=== PATIENT | female | born 1980 | race Two or more races ===

== ENCOUNTER 2017-05-16 21:12 | Emergency (ER) | payer MEDICAID ==
[~2017-05-16] VITALS: Ht 160 cm; Wt 127.0 kg
[~2017-05-16 21:12] MED LIST: LEVO500T21 PO; NOR10T PO; ONDA4TAB8 SL
[2017-05-16 23:08] LABS: Hematocrit 41.9 % (36.0-46.0); Mean Corpuscular Hemoglobin 28.6 pg (28.0-32.0); Mean Corpuscular Hgb Conc. 33.3 g/dL (32.0-36.0); Mean Corpuscular Volume 85.9 fL (80.0-100.0); Mean Platelet Volume 7.1 fL (6.9-10.8); Platelet Count (auto) 382 10^3/uL (140-450); Red Cell Distribution Width 14.7 % (11.8-14.3); White Blood Cell 12.2 10^3/uL (4.4-10.8)
[2017-05-16 23:15] LABS: Metamyelocytes % 0; Myelocytes % 0; Promyelocytes % 0; Reactive Lymphocytes 0
[2017-05-16 23:22] LABS: INR 0.95 (0.9-1.15); Prothrombin Time 10.3 sec (9.37-12.3)
[2017-05-16 23:37] LABS: Albumin 3.8 g/dL (3.4-5.0); BUN/Creatinine Ratio 12.5; Calcium 9.2 mg/dL (8.5-10.1); Potassium 3.6 mmol/L (3.5-5.1)
[2017-05-16 23:39] LABS: Bilirubin, Total 0.6 mg/dL (0.2-1.0); Total Protein 8.3 g/dL (6.4-8.2)
[2017-05-16 23:43] LABS: Hypersegmented Neutrophils Present; Platelet Estimate Adequate; RBC Morphology Normal
[2017-05-17] MEDS ORDERED: SODIUM CHLORIDE 0.9% 250 ML IV ONE
[2017-05-17] MEDS ORDERED: HYDROmorphone HCL 2 MG/ML VL IM ONE
[2017-05-17] MEDS ORDERED: cloNIDine HCL 0.1 MG TAB PO ONE (03:00)
[2017-05-17] MEDS ORDERED: HYDROmorphone HCL 2 MG/ML VL IV ONE ×2 (03:30→03:45)
[2017-05-17] MEDS ORDERED: ONDANSETRON HCL 4 MG/2 ML VIAL IV ONE ×2 (03:30)
[2017-05-17 03:33] LABS: Urine Bilirubin Negative (Negative); Urine Blood 2+ /uL (Negative); Urine Color Yellow (Yellow); Urine Glucose Normal (Normal); Urine Ketone 2+ (Negative); Urine Mucus MODERATE (None Seen); Urine Nitrite Negative (Negative); Urine RBC 29 /hpf (0 - 4); Urine Squamous Epithelial Cell MOD /hpf (<5); Urine Urobilinogen Normal (Negative)
[2017-05-17 05:46] VITALS: BP 125/71
== END 2017-05-17 06:20 | disposition home or self-care (01) ==
LOC: EDBD 21:12 → ER 21:22
DX: K29.00 Acute gastritis without bleeding (principal); F12.10 Cannabis abuse, uncomplicated; K21.9 Gastro-esophageal reflux disease without esophagitis; I10 Essential (primary) hypertension; Z87.11 Personal history of peptic ulcer disease; Z87.442 Personal history of urinary calculi; Z90.49 Acquired absence of other specified parts of digestive tract
CPT/HCPCS: 36415; 74176; 80053; 80307; 81001; 81025; 82150; 83690; 84702; 85007; 85027; 85610; 85730; 96361; 96372; 96374; 96375; 96376; 99285; J1170; J2405; J7030

== ENCOUNTER 2017-06-10 06:52 | Emergency (ER) | payer MEDICAID ==
[~2017-06-10] VITALS: Ht 170.2 cm; Wt 127.0 kg
[2017-06-10 08:14] VITALS: BP 148/104
[2017-06-10] MEDS ORDERED: KETOROLAC TROMETH 60MG/2ML VIAL IM ONE (08:30)
[2017-06-10 09:14] LABS: Basophils # (auto) 0.1 uL; Basophils % (auto) 0.8 % (0.0-2.0); Eosinophils # (auto) 0 uL; Eosinophils % (auto) 0.4 % (0.0-7.0); Hematocrit 38.9 % (36.0-46.0); Lymphocytes # (auto) 1.8 uL; Lymphocytes % (auto) 17.9 % (10.0-50.0); Mean Corpuscular Hemoglobin 29.1 pg (28.0-32.0); Mean Corpuscular Hgb Conc. 33.5 g/dL (32.0-36.0); Mean Platelet Volume 7.2 fL (6.9-10.8); Monocytes # (auto) 0.6 uL; Monocytes % (auto) 5.9 % (0.0-12.0); Neutrophils # (auto) 7.7 uL; Nucleated Red Blood Cells % 0.1 %; Platelet Count (auto) 279 10^3/uL (140-450); Red Cell Distribution Width 15.6 % (11.8-14.3); White Blood Cell 10.3 10^3/uL (4.4-10.8)
[2017-06-10 09:40] LABS: Albumin 3.5 g/dL (3.4-5.0); BUN/Creatinine Ratio 12.9; Bilirubin, Total 0.4 mg/dL (0.2-1.0); Calcium 8.5 mg/dL (8.5-10.1); Total Protein 7.2 g/dL (6.4-8.2)
[2017-06-10] MEDS ORDERED: PROMETHAZINE HCL 25 MG/ML 1ML IM ONE (10:00)
[2017-06-10] MEDS ORDERED: MORPHINE SULFATE 10 MG/ML INJ 1ML SDV IM ONE (10:00)
== END 2017-06-10 10:29 | disposition home or self-care (01) ==
LOC: EDBD 06:52 → ER 06:56
DX: N20.0 Calculus of kidney (principal); N83.201 Unspecified ovarian cyst, right side; K42.9 Umbilical hernia without obstruction or gangrene
CPT/HCPCS: 36415; 74176; 80053; 81025; 83690; 85025; 96372; 99285; J1885; J2270; J2550

== ENCOUNTER 2017-07-10 01:01 | Emergency (ER) | payer MEDICAID ==
[~2017-07-10] VITALS: Ht 160 cm; Wt 121.6 kg
[2017-07-10] MEDS ORDERED: SODIUM CHLORIDE 0.9% 1,000 ML IVB ONE (01:11)
[2017-07-10] MEDS ORDERED: ONDANSETRON HCL 4 MG/2 ML VIAL IV ONE ×2 (01:15→07:00)
[2017-07-10] MEDS ORDERED: KETOROLAC TROMETH 30 MG/ML 1ML VIAL IV ONE (01:15)
[2017-07-10 01:33] LABS: Hematocrit 42.1 % (36.0-46.0); Mean Corpuscular Hemoglobin 28.8 pg (28.0-32.0); Mean Corpuscular Hgb Conc. 33.3 g/dL (32.0-36.0); Mean Corpuscular Volume 86.7 fL (80.0-100.0); Mean Platelet Volume 7.4 fL (6.9-10.8); Platelet Count (auto) 335 10^3/uL (140-450); White Blood Cell 12.2 10^3/uL (4.4-10.8)
[2017-07-10 01:35] LABS: Metamyelocytes % 0; Myelocytes % 0; Promyelocytes % 0
[2017-07-10 01:49] LABS: Albumin 3.7 g/dL (3.4-5.0); Potassium 3.3 mmol/L (3.5-5.1)
[2017-07-10 01:51] LABS: BUN/Creatinine Ratio 13.9
[2017-07-10 01:53] LABS: Bilirubin, Total 0.4 mg/dL (0.2-1.0); Total Protein 8.1 g/dL (6.4-8.2)
[2017-07-10 02:20] LABS: Ovalocytes FEW; Platelet Estimate Adequate; Reactive Lymphocytes 4
[2017-07-10] MEDS ORDERED: PROMETHAZINE HCL 25 MG/ML 1ML ONE (02:45)
[2017-07-10] MEDS ORDERED: MORPHINE SULF INJ 2 MG/ML SYRINGE 1ML ONE (02:45)
[2017-07-10] MEDS ORDERED: LISI10TA6 PO (03:27)
[2017-07-10] MEDS ORDERED: MORPHINE SULF INJ 2 MG/ML SYRINGE 1ML IV ONE (03:30)
[2017-07-10] MEDS ORDERED: PROMETHAZINE HCL 25 MG/ML 1ML IV ONE (03:30)
[2017-07-10 04:22] LABS: Urine Bilirubin Negative (Negative); Urine Blood Negative /uL (Negative); Urine Color Yellow (Yellow); Urine Glucose Normal (Normal); Urine Ketone 1+ (Negative); Urine Nitrite Negative (Negative); Urine RBC <1 /hpf (0 - 4); Urine Squamous Epithelial Cell FEW /hpf (<5); Urine Urobilinogen Normal (Negative); Urine pH 7.5 (5.0-8.0)
[2017-07-10] MEDS ORDERED: cefTRIAXone SOD 1,000 MG VL ONE (04:59)
[2017-07-10 06:49] VITALS: BP 165/76
[2017-07-10] MEDS ORDERED: HYDROmorphone HCL 2 MG/ML VL IV ONE (07:00)
== END 2017-07-10 07:44 | disposition home or self-care (01) ==
LOC: EDBD 01:01 → ER 01:07
DX: N39.0 Urinary tract infection, site not specified (principal); E86.0 Dehydration; K21.9 Gastro-esophageal reflux disease without esophagitis; I10 Essential (primary) hypertension; Z87.442 Personal history of urinary calculi; Z87.11 Personal history of peptic ulcer disease; Z90.49 Acquired absence of other specified parts of digestive tract
CPT/HCPCS: 36415; 74176; 80053; 80320; 81001; 82150; 83690; 84702; 85007; 85027; 96361; 96374; 96375; 96376; 99285; J0696; J1170; J1885; J2270; J2405; J2550; J7030

== ENCOUNTER 2017-09-28 01:28 | Emergency (ER) | payer MEDICAID ==
[~2017-09-28] VITALS: Ht 160 cm; Wt 108.9 kg
[~2017-09-28 01:28] MED LIST changes: +LISI10TA6 PO; +ONDA-101 SL; -ONDA4TAB8 SL
[2017-09-28 01:48] VITALS: BP 155/103
[2017-09-28] MEDS ORDERED: LORazepam 0.5 MG TAB PO ONE (02:00)
[2017-09-28] MEDS ORDERED: HYDROcodone-ACET 10/325MG TAB PO ONE (02:00)
[2017-09-28 03:07] LABS: Basophils # (auto) 0.1 uL; Basophils % (auto) 0.9 % (0.0-2.0); Eosinophils # (auto) 0 uL; Eosinophils % (auto) 0.3 % (0.0-7.0); Hematocrit 43.7 % (36.0-46.0); Hemoglobin 14.8 g/dL (12.2-16.2); Lymphocytes # (auto) 2.6 uL; Lymphocytes % (auto) 24.9 % (10.0-50.0); Mean Corpuscular Hgb Conc. 33.8 g/dL (32.0-36.0); Mean Corpuscular Volume 85.8 fL (80.0-100.0); Monocytes # (auto) 0.6 uL; Monocytes % (auto) 5.3 % (0.0-12.0); Neutrophils # (auto) 7.1 uL; Neutrophils % (auto) 68.6 % (37.0-80.0); Platelet Count (auto) 353 10^3/uL (140-450); Red Cell Distribution Width 14.6 % (11.8-14.3); White Blood Cell 10.3 10^3/uL (4.4-10.8)
[2017-09-28 03:25] LABS: BUN/Creatinine Ratio 17.6; Calcium 9.3 mg/dL (8.5-10.1); Potassium 3.3 mmol/L (3.5-5.1)
[2017-09-28 03:28] LABS: Bilirubin, Total 0.6 mg/dL (0.2-1.0); Total Protein 8.1 g/dL (6.4-8.2)
[2017-09-28 04:12] LABS: Urine Pregnacy Test Negative (Negative)
[2017-09-28 04:14] LABS: Urine Bacteria NONE SEEN /hpf (None Seen); Urine Blood TRACE /uL (Negative); Urine Mucus FEW (None Seen); Urine Specific Gravity 1.024 (1.001-1.035); Urine WBC 5 /hpf (0 - 5)
[2017-09-28 04:28] LABS: Alcohol, Urine < 3.0 mg/dL (0-5); Amphetamine Screen, Urine POSITIVE (NEGATIVE); Barbiturate Scree,Urine NEGATIVE (NEGATIVE); Benzodiazephine Screen, Urine NEGATIVE (NEGATIVE); Cannabinoid Screen, Urine POSITIVE (NEGATIVE); Cocaine Screen, Urine NEGATIVE (NEGATIVE); Opiate Scree,Urine NEGATIVE (NEGATIVE); Phencyclidine Screen, Urine NEGATIVE (NEGATIVE)
== END 2017-09-28 04:23 | disposition left against medical advice (07) ==
LOC: ER 01:28 → EDBD 01:28 → ER 04:23
DX: R10.9 Unspecified abdominal pain (principal); F41.9 Anxiety disorder, unspecified; Z53.21 Procedure and treatment not carried out due to patient leaving prior to being seen by health care provider
CPT/HCPCS: 36415; 74176; 80053; 80307; 81001; 81025; 85025

== ENCOUNTER 2018-04-17 16:27 | Emergency (ER) | payer MEDICAID ==
[~2018-04-17] VITALS: Ht 167.6 cm; Wt 127.0 kg
[2018-04-17] MEDS ORDERED: SODIUM CHLORIDE 0.9% 1,000 ML IVB ONE (16:52)
[2018-04-17] MEDS ORDERED: PANTOPRAZOLE 40 MG/10 ML VIAL IV STA (16:52)
[2018-04-17] MEDS ORDERED: PROCHLORPERAZINE EDISYLATE 5 MG/ML 2ML VIAL IV ONE (17:00)
[2018-04-17] MEDS ORDERED: MORPHINE SULFATE 4 MG/ML SYR/VIAL IV ONE (17:00)
[2018-04-17 18:59] LABS: Basophils # (auto) 0.1 uL; Basophils % (auto) 0.5 % (0.0-2.0); Eosinophils # (auto) 0 uL; Eosinophils % (auto) 0.4 % (0.0-7.0); Hemoglobin 14.3 g/dL (12.2-16.2); Lymphocytes # (auto) 2.4 uL; Lymphocytes % (auto) 24.5 % (10.0-50.0); Mean Corpuscular Hemoglobin 30.8 pg (28.0-32.0); Mean Corpuscular Hgb Conc. 34.8 g/dL (32.0-36.0); Mean Corpuscular Volume 88.4 fL (80.0-100.0); Monocytes # (auto) 0.7 uL; Monocytes % (auto) 7.4 % (0.0-12.0); Neutrophils # (auto) 6.5 uL; Neutrophils % (auto) 67.2 % (37.0-80.0); Nucleated Red Blood Cells % 0.1 %; Platelet Count (auto) 284 10^3/uL (140-450); Red Blood Cells 4.64 10^6/uL (4.0-5.20); Red Cell Distribution Width 13.7 % (11.8-14.3); White Blood Cell 9.7 10^3/uL (4.4-10.8)
[2018-04-17 19:15] LABS: Albumin 3.4 g/dL (3.4-5.0); BUN/Creatinine Ratio 21.3; Calcium 7.9 mg/dL (8.5-10.1); Potassium 3.2 mmol/L (3.5-5.1)
[2018-04-17 19:18] LABS: Bilirubin, Total 1.1 mg/dL (0.2-1.0); Total Protein 7.2 g/dL (6.4-8.2)
[2018-04-17 20:04] LABS: Urine Bacteria NONE SEEN /hpf (None Seen); Urine Blood Negative /uL (Negative); Urine Mucus FEW (None Seen); Urine Specific Gravity 1.012 (1.001-1.035); Urine WBC 4 /hpf (0 - 5)
[2018-04-17 20:13] VITALS: BP 135/68
== END 2018-04-17 20:20 | disposition home or self-care (01) ==
LOC: EDUNIT# 16:27 → EDBD 16:27 → ER 16:33
DX: R10.84 Generalized abdominal pain (principal); F12.10 Cannabis abuse, uncomplicated; R11.2 Nausea with vomiting, unspecified; R19.7 Diarrhea, unspecified; K21.9 Gastro-esophageal reflux disease without esophagitis; I10 Essential (primary) hypertension; Z87.11 Personal history of peptic ulcer disease; Z87.442 Personal history of urinary calculi; Z90.49 Acquired absence of other specified parts of digestive tract
CPT/HCPCS: 36415; 80053; 81001; 82150; 83690; 84702; 85025; 94761; 96361; 96374; 96375; 99285; C9113; J0780; J2270; J7030

== ENCOUNTER 2020-08-20 22:24 | Emergency (ER) | payer MEDICAID ==
[~2020-08-20] VITALS: Ht 160 cm; Wt 95.3 kg
[~2020-08-20 22:24] MED LIST changes: +LISI-648 PO; -LISI10TA6 PO
[2020-08-20 23:31] VITALS: BP 154/104
[2020-08-20] MEDS ORDERED: methylPREDNISolone SOD SUCC 125 MG/2 ML VL IM ONE (23:45)
[2020-08-20] MEDS ORDERED: KETOROLAC TROMETH 60MG/2ML VIAL IM ONE (23:45)
== END 2020-08-21 00:33 | disposition home or self-care (01) ==
LOC: ER 22:26
DX: S43.401A Unspecified sprain of right shoulder joint, initial encounter (principal); I10 Essential (primary) hypertension; K21.9 Gastro-esophageal reflux disease without esophagitis; Z79.899 Other long term (current) drug therapy; Z90.49 Acquired absence of other specified parts of digestive tract; W19.XXXA Unspecified fall, initial encounter; Y93.89 Activity, other specified; Y92.89 Other specified places as the place of occurrence of the external cause; Y99.8 Other external cause status
CPT/HCPCS: 73030; 81025; 96372; 99284; J1885; J2930

== ENCOUNTER 2020-10-20 21:09 | Emergency (ER) | payer MEDICAID ==
[~2020-10-20] VITALS: Ht 160 cm; Wt 95.3 kg
[~2020-10-20 21:09] MED LIST changes: -LEVO500T21 PO; +LEVO500T31 PO
[2020-10-21 01:14] VITALS: BP 157/100
== END 2020-10-21 02:51 | disposition left against medical advice (07) ==
LOC: ER 21:11
DX: M79.605 Pain in left leg (principal); M79.604 Pain in right leg; F12.10 Cannabis abuse, uncomplicated; I10 Essential (primary) hypertension; F41.9 Anxiety disorder, unspecified; K21.9 Gastro-esophageal reflux disease without esophagitis; Z87.442 Personal history of urinary calculi; Z87.11 Personal history of peptic ulcer disease; Z79.899 Other long term (current) drug therapy

== ENCOUNTER 2020-12-12 00:18 | Emergency (ER) | payer MEDICAID ==
[~2020-12-12] VITALS: Ht 160 cm; Wt 95.3 kg
[~2020-12-12 00:18] MED LIST changes: -LISI-648 PO; +LISI-716 PO
[2020-12-12 00:19] VITALS: BP 165/104
[2020-12-12] MEDS ORDERED: KETOROLAC TROMETH 60MG/2ML VIAL IM ONE (01:30)
== END 2020-12-12 02:55 | disposition home or self-care (01) ==
LOC: ER 00:18
DX: S80.02XA Contusion of left knee, initial encounter (principal); M79.642 Pain in left hand; M79.641 Pain in right hand; F12.10 Cannabis abuse, uncomplicated; K21.9 Gastro-esophageal reflux disease without esophagitis; I10 Essential (primary) hypertension; Z90.49 Acquired absence of other specified parts of digestive tract; Z87.442 Personal history of urinary calculi; W01.0XXA Fall on same level from slipping, tripping and stumbling without subsequent striking against object, initial encounter; Y93.89 Activity, other specified; Y92.89 Other specified places as the place of occurrence of the external cause; Y99.8 Other external cause status
CPT/HCPCS: 73030; 73130; 73562; 96372; 99284; J1885

== ENCOUNTER 2021-05-26 23:35 | Inpatient (IN) | payer MEDICAID ==
[~2021-05-26] VITALS: Ht 160 cm; Wt 103.3 kg
[2021-05-27 02:41] LABS: Basophils # (auto) 0 10 ^3/uL (0-0.2); Basophils % (auto) 0.6 % (0.0-2.0); Eosinophils # (auto) 0.1 10 ^3/uL (0-0.8); Hematocrit 39.8 % (36.0-46.0); Hemoglobin 13.5 g/dL (12.2-16.2); Lymphocytes % (auto) 25.1 % (10.0-50.0); Mean Corpuscular Hemoglobin 29.8 pg (28.0-32.0); Mean Corpuscular Hgb Conc. 33.9 g/dL (32.0-36.0); Mean Corpuscular Volume 87.8 fL (80.0-100.0); Monocytes # (auto) 0.5 10 ^3/uL (0-1.3); Monocytes % (auto) 6.2 % (0.0-12.0); Neutrophils # (auto) 5.3 10 ^3/uL (1.6-8.6); Neutrophils % (auto) 67.1 % (37.0-80.0); Nucleated Red Blood Cells % 0.2 %; Red Blood Cells 4.54 10^6/uL (4.0-5.20); Red Cell Distribution Width 14.5 % (11.8-14.3); White Blood Cell 7.9 10^3/uL (4.4-10.8)
[2021-05-27 02:45] LABS: Urine Bacteria FEW /hpf (None Seen); Urine Blood Negative /uL (Negative); Urine Specific Gravity 1.022 (1.001-1.035); Urine WBC 5 /hpf (0 - 5)
[2021-05-27 03:45] LABS: Potassium 3.5 mmol/L (3.5-5.1)
[2021-05-27 03:54] LABS: Albumin 3.6 g/dL (3.4-5.0); BUN/Creatinine Ratio 20.8; Bilirubin, Total 0.2 mg/dL (0.2-1.0); Calcium 8.8 mg/dL (8.5-10.1); Magnesium 2.1 mg/dL (1.6-2.6); Total Protein 7.4 g/dL (6.4-8.2)
[2021-05-27] MEDS ORDERED: IOHEXOL 300 MG/ML 100ML BOTTLE IJ ONE (05:18)
[2021-05-27] MEDS ORDERED: MORPHINE SULFATE INJECTION 2 MG/ML SYRG IV PRN (09:30)
[2021-05-27] MEDS ORDERED: NITROGLYCERIN 0.4 MG SL TAB SL PRN (09:30)
[2021-05-27] MEDS ORDERED: ACETAMINOPHEN 500 MG TAB PO PRN (09:30)
[2021-05-27] MEDS: ONDANSETRON HCL 4 MG/2 ML VIAL IV PRN (10:50)
[2021-05-27] MEDS: metroNIDAZOLE 500MG/100ML 100 ML IV SCH ×2 (14:08→21:47)
[2021-05-27] MEDS: HYDROcodone-ACET 5/325MG TAB PO PRN (16:19)
[2021-05-27] MEDS: ALPRAZolam 0.25 MG TAB PO PRN (16:20)
[2021-05-27 22:00] VITALS: BP 145/93
[2021-05-28] MEDS: HYDROcodone-ACET 5/325MG TAB PO PRN ×2 (01:22→01:30)
[2021-05-28] MEDS: MORPHINE SULFATE INJECTION 2 MG/ML SYRG IV PRN ×4 (01:27→23:25)
[2021-05-28 05:00] VITALS: BP 193/138
[2021-05-28] MEDS: ONDANSETRON HCL 4 MG/2 ML VIAL IV PRN (05:07)
[2021-05-28] MEDS: ALPRAZolam 0.25 MG TAB PO PRN (05:44)
[2021-05-28] MEDS: metroNIDAZOLE 500MG/100ML 100 ML IV SCH ×3 (05:44→21:59)
[2021-05-28] MEDS ORDERED: hydrALAZINE HCL 20 MG/ML VL IV ONE (06:15)
[2021-05-28] MEDS: cefTRIAXone 1GM/50ML D5W 50 ML IV SCH (08:37)
[2021-05-28 09:00] VITALS: BP 147/95
[2021-05-28 12:00] VITALS: BP 146/109
[2021-05-28] MEDS ORDERED: LISINOPRIL 20 MG TAB PO ONE (13:45)
[2021-05-28] MEDS ORDERED: hydrALAZINE HCL 20 MG/ML VL IV PRN (13:45)
[2021-05-28] MEDS ORDERED: GOLYTELY 4L KIT PO ONE (15:15)
[2021-05-28 16:00] VITALS: BP 163/111
[2021-05-28] MEDS: LORazepam 2MG/ML-1ML VIAL IV PRN (20:15)
[2021-05-28] MEDS ORDERED: MAGNESIUM CITRATE SOLUTION 300 ML BTL PO ONE (21:15)
[2021-05-28 22:00] VITALS: BP 123/79
[2021-05-29] MEDS: ONDANSETRON HCL 4 MG/2 ML VIAL IV PRN ×2 (01:26→11:50)
[2021-05-29 05:00] VITALS: BP 146/108
[2021-05-29] MEDS: MORPHINE SULFATE INJECTION 2 MG/ML SYRG IV PRN (05:15)
[2021-05-29] MEDS: metroNIDAZOLE 500MG/100ML 100 ML IV SCH (05:52)
[2021-05-29] MEDS ORDERED: MAGNESIUM CITRATE SOLUTION 300 ML BTL PO ONE (06:00)
[2021-05-29 06:30] LABS: Basophils # (auto) 0 10 ^3/uL (0-0.2); Basophils % (auto) 0.4 % (0.0-2.0); Eosinophils # (auto) 0 10 ^3/uL (0-0.8); Eosinophils % (auto) 0.1 % (0.0-7.0); Hematocrit 45.3 % (36.0-46.0); Hemoglobin 15.3 g/dL (12.2-16.2); Lymphocytes # (auto) 1.4 10 ^3/uL (0.4-5.4); Lymphocytes % (auto) 13.5 % (10.0-50.0); Mean Corpuscular Hemoglobin 29.5 pg (28.0-32.0); Mean Corpuscular Hgb Conc. 33.8 g/dL (32.0-36.0); Mean Corpuscular Volume 87.2 fL (80.0-100.0); Monocytes # (auto) 0.5 10 ^3/uL (0-1.3); Monocytes % (auto) 5.2 % (0.0-12.0); Neutrophils # (auto) 8.5 10 ^3/uL (1.6-8.6); Neutrophils % (auto) 80.8 % (37.0-80.0); Nucleated Red Blood Cells % 0.1 %; Red Cell Distribution Width 14.4 % (11.8-14.3); White Blood Cell 10.6 10^3/uL (4.4-10.8)
[2021-05-29 06:47] LABS: Calcium 8.6 mg/dL (8.5-10.1); Magnesium 2.8 mg/dL (1.6-2.6); Potassium 3.1 mmol/L (3.5-5.1)
[2021-05-29 06:52] LABS: BUN/Creatinine Ratio 14.1
[2021-05-29 09:00] VITALS: BP 156/101
[2021-05-29] MEDS: cefTRIAXone 1GM/50ML D5W 50 ML IV SCH (09:21)
[2021-05-29] MEDS: LORazepam 2MG/ML-1ML VIAL IV PRN (09:23)
[2021-05-29] MEDS ORDERED: PANTOPRAZOLE 40 MG TAB PO SCH (10:00)
[2021-05-29] MEDS ORDERED: LISINOPRIL 20 MG TAB PO SCH (10:00)
[2021-05-29] MEDS ORDERED: PANT40TA2 PO (12:53)
[2021-05-29] MEDS ORDERED: LISI20TA28 PO (12:53)
[2021-05-29 13:00] VITALS: BP 151/101
[2021-05-29] MEDS ORDERED: POTASSIUM CHL 20MEQ/100ML 100 ML IV SCH (13:00)
[2021-05-29 14:28] LABS: INR 0.98 (0.9-1.15); Partial Thromboplastin Time 29.8 sec (23.6-33.0)
[2021-05-29] MEDS ORDERED: diphenhdrAMINE HCL 50 MG/1 ML VL ONE (14:36)
[2021-05-29] MEDS ORDERED: SODIUM CHLORIDE LOCK 10 ML ONE (14:36)
[2021-05-29] MEDS: fentaNYL CITRATE 100 MCG/2 ML VL ONE ×2 (14:46→14:49)
[2021-05-29] MEDS: MIDAZOLAM HCL 5 MG/ML-1ML VIAL ONE ×4 (14:46→14:54)
[2021-05-29 17:00] VITALS: BP 115/76
== END 2021-05-29 18:35 | disposition home or self-care (01) | DRG 254 ==
LOC: ER 23:35 → OVERFLOW 05-27 09:27 → WEST WING 05-27 17:24
PROVIDERS: ADMIT Nurse Practitioner Acute Care; ATTEND Internal Medicine
PROC: 0DJD8ZZ Inspection of Lower Intestinal Tract, Via Natural or Artificial Opening Endoscopic (ICD-10-PCS; principal; 2021-05-29 14:42)
DX: K92.1 Melena (principal); K76.0 Fatty (change of) liver, not elsewhere classified; R16.0 Hepatomegaly, not elsewhere classified; K29.81 Duodenitis with bleeding; K64.8 Other hemorrhoids; E66.01 Morbid (severe) obesity due to excess calories; E78.5 Hyperlipidemia, unspecified; E87.6 Hypokalemia; I10 Essential (primary) hypertension; K21.9 Gastro-esophageal reflux disease without esophagitis; F12.10 Cannabis abuse, uncomplicated; Z20.822 Contact with and (suspected) exposure to COVID-19; F41.1 Generalized anxiety disorder; Z79.899 Other long term (current) drug therapy; Z82.49 Family history of ischemic heart disease and other diseases of the circulatory system; Z71.51 Drug abuse counseling and surveillance of drug abuser; Z83.3 Family history of diabetes mellitus; Z85.528 Personal history of other malignant neoplasm of kidney; Z87.11 Personal history of peptic ulcer disease; Z87.19 Personal history of other diseases of the digestive system; Z87.442 Personal history of urinary calculi; Z90.5 Acquired absence of kidney; Z90.49 Acquired absence of other specified parts of digestive tract
CPT/HCPCS: 36415; 45378; 74177; 80048; 80053; 80061; 81001; 82270; 82378; 83735; 84702; 85025; 85610; 85652; 85730; 87045; 87426; 87427; 87493; 96365; 96366; 96375; G0378; J0696; J2250; J2405; J3480; J3490

== ENCOUNTER 2021-08-09 08:27 | Emergency (ER) | payer MEDICAID ==
[~2021-08-09] VITALS: Ht 160 cm; Wt 104.8 kg
[~2021-08-09 08:27] MED LIST changes: -LISI-716 PO; +LISI20TA28 PO; +PANT40TA2 PO
[2021-08-09 09:13] LABS: Hemoglobin 13.1 g/dL (12.2-16.2); Mean Corpuscular Hemoglobin 29.1 pg (28.0-32.0); Mean Corpuscular Hgb Conc. 33.5 g/dL (32.0-36.0); Red Blood Cells 4.49 10^6/uL (4.0-5.20); Red Cell Distribution Width 14.3 % (11.8-14.3); White Blood Cell 6.8 10^3/uL (4.4-10.8)
[2021-08-09 09:16] LABS: Band Neutrophils % (manual) 0; Basophils % (manual) 0 (0.0-2.0); Blast Cells 0; Metamyelocytes % 0; Myelocytes % 0; Promyelocytes % 0; Reactive Lymphocytes 0
[2021-08-09 09:29] LABS: Albumin 3.7 g/dL (3.4-5.0); Calcium 8.2 mg/dL (8.5-10.1); Potassium 3.6 mmol/L (3.5-5.1)
[2021-08-09 09:34] LABS: Bilirubin, Total 0.3 mg/dL (0.2-1.0); Total Protein 7.5 g/dL (6.4-8.2)
[2021-08-09 10:40] LABS: Eosinophils % (manual) 1 (0-7); Lymphocytes % (manual) 28 (10.0-50.0); Monocytes % (manual) 5 (0-12)
[2021-08-09 10:59] LABS: Urine Bacteria NONE SEEN /hpf (None Seen); Urine Blood TRACE /uL (Negative); Urine Mucus FEW (None Seen); Urine Specific Gravity 1.019 (1.001-1.035); Urine WBC 1 /hpf (0 - 5)
[2021-08-09] MEDS ORDERED: ONDANSETRON HCL 4 MG/2 ML VIAL IV ONE (11:15)
[2021-08-09] MEDS ORDERED: SODIUM CHLORIDE 0.9% 1,000 ML IVB ONE (11:15)
[2021-08-09] MEDS ORDERED: KETOROLAC TROMETH 30 MG/ML 1ML VIAL IV ONE (11:15)
[2021-08-09 11:49] VITALS: BP 164/112
== END 2021-08-09 15:08 | disposition home or self-care (01) ==
LOC: ER 08:27
DX: R10.9 Unspecified abdominal pain (principal); R11.2 Nausea with vomiting, unspecified; I10 Essential (primary) hypertension; F12.10 Cannabis abuse, uncomplicated; Z90.49 Acquired absence of other specified parts of digestive tract; Z90.89 Acquired absence of other organs
CPT/HCPCS: 36415; 74176; 80053; 81001; 83690; 85007; 85027; 96361; 96374; 96375; 99284; J1885; J2405; J7030

== ENCOUNTER 2021-09-07 20:34 | Emergency (ER) | payer MEDICAID ==
[~2021-09-07] VITALS: Ht 160 cm; Wt 99.8 kg
[2021-09-07 20:38] VITALS: BP 136/85
== END 2021-09-08 03:41 | disposition left against medical advice (07) ==
LOC: ER 20:40
DX: R10.30 Lower abdominal pain, unspecified (principal); Z53.21 Procedure and treatment not carried out due to patient leaving prior to being seen by health care provider

== ENCOUNTER 2021-09-12 18:57 | Emergency (ER) | payer MEDICAID ==
[~2021-09-12] VITALS: Ht 160 cm; Wt 99.8 kg
[2021-09-12 20:23] LABS: Basophils # (auto) 0.2 10 ^3/uL (0-0.2); Basophils % (auto) 1.7 % (0.0-2.0); Eosinophils # (auto) 0 10 ^3/uL (0-0.8); Eosinophils % (auto) 0.1 % (0.0-7.0); Hematocrit 38.7 % (36.0-46.0); Hemoglobin 12.8 g/dL (12.2-16.2); Lymphocytes # (auto) 0.9 10 ^3/uL (0.4-5.4); Lymphocytes % (auto) 8.6 % (10.0-50.0); Mean Corpuscular Hemoglobin 28.3 pg (28.0-32.0); Mean Corpuscular Volume 85.6 fL (80.0-100.0); Monocytes # (auto) 0.4 10 ^3/uL (0-1.3); Monocytes % (auto) 3.8 % (0.0-12.0); Neutrophils # (auto) 8.8 10 ^3/uL (1.6-8.6); Neutrophils % (auto) 85.8 % (37.0-80.0); Red Blood Cells 4.52 10^6/uL (4.0-5.20); White Blood Cell 10.2 10^3/uL (4.4-10.8)
[2021-09-12 21:02] LABS: Albumin 3.5 g/dL (3.4-5.0); Calcium 8.5 mg/dL (8.5-10.1); Potassium 3.8 mmol/L (3.5-5.1)
[2021-09-12 21:08] LABS: BUN/Creatinine Ratio 24.1; Bilirubin, Total 0.2 mg/dL (0.2-1.0); Total Protein 7.6 g/dL (6.4-8.2)
[2021-09-12] MEDS ORDERED: CEPH500C PO (21:25)
[2021-09-12 21:40] VITALS: BP 144/91
== END 2021-09-12 21:41 | disposition home or self-care (01) ==
LOC: ER 18:57 → EDBD 18:57 → ER 21:41
DX: L03.311 Cellulitis of abdominal wall (principal); I10 Essential (primary) hypertension; F12.10 Cannabis abuse, uncomplicated; Z90.49 Acquired absence of other specified parts of digestive tract; Z90.89 Acquired absence of other organs
CPT/HCPCS: 36415; 80053; 85025